=== PATIENT | male | born 1955 | race Caucasian/White ===

== ENCOUNTER → 2016-08-26 | Outpatient (CLI) | payer BC ==
[~2016-08-26] MED LIST: BUSPAR 30MG30 MG/TAB PO; CEFTIN500 MG PO; ENTOCORT EC3 MG PO; FLOMAX 0.40.4 MG/CAP PO; FLORINEF ACETA0.1 MG PO; LIPITOR 10MG10 MG PO; MACROBID 1100 MG/CAP PO; PRILOSEC 20MG20 MG PO; VESICARE10 MG PO; VIIBRYD40 MG PO; WELLBUTRIN SR100 M1 PO; ZANAFLEX2 MG PO; ZOLOFT 100MG100 MG
== END ==
LOC: BHSO 14:46
DX: F06.32 Mood disorder due to known physiological condition with major depressive-like episode (principal)

== ENCOUNTER → 2016-10-29 | Outpatient (CLI) | payer BC | LOC: BHSO 15:07 | DX: F06.32 Mood disorder due to known physiological condition with major depressive-like episode (principal) ==

== ENCOUNTER → 2016-12-30 | Outpatient (CLI) | payer BC | LOC: BHSO 14:38 | DX: F06.32 Mood disorder due to known physiological condition with major depressive-like episode (principal) ==

== ENCOUNTER 2017-03-14 01:58 | Emergency (ER) | payer BC ==
[~2017-03-14] VITALS: Ht 167.6 cm; Wt 71.4 kg
[~2017-03-14 01:58] MED LIST changes: -MACROBID 1100 MG/CAP PO; -VIIBRYD40 MG PO
[2017-03-14 02:01] VITALS: TEMP 97.7
[2017-03-14] MEDS ORDERED: VIIBRYD40 MG PO (02:08)
[2017-03-14 02:53] LABS: PH 5 (5-8); SQUAMOUS EPITHELIAL None Seen /hpf; URINE APPEARANCE Clear; URINE BACTERIA Rare /hpf; URINE BILIRUBIN Negative (NEGATIVE); URINE BLOOD Negative (NEGATIVE); URINE COLOR Yellow; URINE GLUCOSE Negative (NEGATIVE); URINE KETONE Negative (NEGATIVE); URINE UROBILINOGEN Negative (NEGATIVE)
[2017-03-14] MEDS ORDERED: MACROBID 1100 MG/CAP PO (03:05)
[2017-03-14 03:37] VITALS: BP 113/81; PULSE 91
== END 2017-03-14 03:37 | disposition home or self-care (01) ==
LOC: COL.ER 01:58
PROVIDERS: Emergency Medicine
DX: R33.9 Retention of urine, unspecified (principal); G90.3 Multi-system degeneration of the autonomic nervous system
CPT/HCPCS: A4315

== ENCOUNTER → 2017-03-30 | Outpatient (CLI) | payer BC ==
[~2017-03-30] MED LIST changes: +ASPIRIN 81M81 MG/TA2 PO; +B-12; +B-12 INJ; +CEFACLOR500 M2 PO; +CRANBERRY500 M3 PO; +MACROBID 1100 MG/CAP PO; +MIRALAX PA17 GM/Dose PO; +MULTIPLE VITAMI1 CAP PO; +PROAMATINE 5MG T5 MG PO; +PROSCAR 5MG5 MG PO; +REQUIP 0.5MG0.5 MG PO; +THE MEDICINE S200 M2 PO; +TYLENOL 500MG500 MG PO; +VIIBRYD40 MG PO; +WELLBUTRIN XL300 M1 PO; +ZANTAC 150MG T150 MG PO
== END ==
LOC: BHSO 15:13
DX: F06.32 Mood disorder due to known physiological condition with major depressive-like episode (principal)

== ENCOUNTER 2017-04-08 09:12 | Day surgery (SDC) | payer BC ==
[~2017-04-08] VITALS: Ht 167.6 cm; Wt 69.1 kg
[~2017-04-08 09:12] MED LIST changes: -ASPIRIN 81M81 MG/TA2 PO; -B-12; -B-12 INJ; -CEFACLOR500 M2 PO; -CRANBERRY500 M3 PO; -MIRALAX PA17 GM/Dose PO; -MULTIPLE VITAMI1 CAP PO; -PROAMATINE 5MG T5 MG PO; -PROSCAR 5MG5 MG PO; -REQUIP 0.5MG0.5 MG PO; -THE MEDICINE S200 M2 PO; -TYLENOL 500MG500 MG PO; -WELLBUTRIN XL300 M1 PO; -ZANTAC 150MG T150 MG PO
[2017-04-08 10:30] VITALS: BP 141/93; PULSE 79; TEMP 97.5
[2017-04-08] MEDS ORDERED: WELLBUTRIN XL300 M1 PO (10:45)
[2017-04-08] MEDS ORDERED: ZANTAC 150MG T150 MG PO (10:48)
[2017-04-08] MEDS ORDERED: REQUIP 0.5MG0.5 MG PO (11:01)
[2017-04-08] MEDS ORDERED: PROSCAR 5MG5 MG PO (11:01)
[2017-04-08] MEDS ORDERED: THE MEDICINE S200 M2 PO (11:02)
[2017-04-08] MEDS ORDERED: ASPIRIN 81M81 MG/TA2 PO (11:02)
[2017-04-08] MEDS ORDERED: B-12 (11:09)
[2017-04-08] MEDS ORDERED: MULTIPLE VITAMI1 CAP PO (11:10)
[2017-04-08] MEDS ORDERED: B-12 INJ (11:10)
[2017-04-08] MEDS ORDERED: CRANBERRY500 M3 PO (11:11)
[2017-04-08] MEDS ORDERED: TYLENOL 500MG500 MG PO (11:12)
[2017-04-08] MEDS ORDERED: MIRALAX PA17 GM/Dose PO (11:13)
[2017-04-08] MEDS ORDERED: CEFACLOR500 M2 PO (11:14)
[2017-04-08] MEDS ORDERED: PROAMATINE 5MG T5 MG PO (11:14)
[2017-04-08 17:46] VITALS: BP 140/75; PULSE 86
[2017-04-08 22:06] VITALS: BP 124/73; PULSE 94; TEMP 98.4
[2017-04-09] VITALS (8 sets, daily range): BP systolic 102–171; BP diastolic 57–98; PULSE 70–86; TEMP 97.1–98.3
[2017-04-09 07:54] LABS: MEAN CELL VOLUME 88 fl (80.0-100.0); MEAN CORPUSCULAR HGB CONC 33 g/dl (33.0-37.0); MEAN PLATELET VOLUME 10.7 fl (7.4-10.4); PLATELET COUNT 264 K/mm3 (130-400); RED BLOOD COUNT 3.94 M/mm3 (4.20-5.60); WHITE BLOOD COUNT 11.7 K/mm3 (4.8-10.8)
[2017-04-09 07:55] LABS: HEMATOCRIT 34.8 % (42.0-52.0); HEMOGLOBIN 11.4 g/dl (13.5-18.0); MEAN CORPUSCULAR HEMOGLOBIN 29 pg (27.0-31.0)
[2017-04-10 03:16] VITALS: BP 168/99; PULSE 72; TEMP 98.5
[2017-04-10 09:00] VITALS: BP 116/76; PULSE 60; TEMP 97.5
[2017-04-10 12:00] VITALS: BP 129/87; PULSE 76; TEMP 97.7
== END 2017-04-10 17:50 | disposition home or self-care (01) ==
LOC: SDCO 09:12 → SURG 12:45 → SDCO 14:00
PROVIDERS: Urology
DX: N40.1 Benign prostatic hyperplasia with lower urinary tract symptoms (principal); R33.9 Retention of urine, unspecified; F41.9 Anxiety disorder, unspecified; G11.9 Hereditary ataxia, unspecified; R39.12 Poor urinary stream; E78.5 Hyperlipidemia, unspecified; J38.02 Paralysis of vocal cords and larynx, bilateral; G90.3 Multi-system degeneration of the autonomic nervous system; Z87.891 Personal history of nicotine dependence
CPT/HCPCS: OP; J0690; J1100; J2405; J2704; J3010; J7120

== ENCOUNTER 2017-08-05 19:31 | Inpatient (IN) | payer BC ==
[~2017-08-05] VITALS: Ht 167.6 cm; Wt 73.3 kg
[~2017-08-05 19:31] MED LIST changes: +ASPIRIN 81M81 MG/TA2 PO; +B-12; +B-12 INJ; +CEFACLOR500 M2 PO; +CRANBERRY500 M3 PO; +MIRALAX PA17 GM/Dose PO; +MULTIPLE VITAMI1 CAP PO; +PROAMATINE 5MG T5 MG PO; +PROSCAR 5MG5 MG PO; +REQUIP 0.5MG0.5 MG PO; +THE MEDICINE S200 M2 PO; +TYLENOL 500MG500 MG PO; +WELLBUTRIN XL300 M1 PO; +ZANTAC 150MG T150 MG PO
[2017-08-05 20:21] LABS: BASO % 0.4 % (0.0-2.0); EOS # 0.1 (0.0-0.7); EOS % 1.9 % (0-4.0); GRAN # 4.4 (1.4-6.5); GRAN % 64.2 % (42.2-75.2); LYMPH # 1.6 (1.2-3.4); LYMPH % 24.2 % (20.0-51.0); MEAN CELL VOLUME 87 fl (80.0-100.0); MEAN CORPUSCULAR HEMOGLOBIN 29 pg (27.0-31.0); MEAN CORPUSCULAR HGB CONC 33 g/dl (33.0-37.0); MEAN PLATELET VOLUME 10.3 fl (7.4-10.4); MONO # 0.6 (0.1-0.6); PLATELET COUNT 217 K/mm3 (130-400); RED BLOOD COUNT 4.14 M/mm3 (4.20-5.60); REDCELL DISTRIBUTION WIDTH-CV 12.7 % (11.5-14.5)
[2017-08-05 20:31] LABS: ALBUMIN 4.2 gm/dL (3.5-5.0); BILIRUBIN,TOTAL 0.3 mg/dL (0.0-1.0); CALCIUM 9.4 mg/dL (8.4-10.2); CREATININE, serum 2.15 mg/dL (0.66-1.25); POTASSIUM 3.8 mmol/L (3.4-5.0)
[2017-08-05 20:46] LABS: TROPONIN-I 0.038 ng/mL (0.000-0.034)
[2017-08-06 01:12] VITALS: BP 129/95; PULSE 99; TEMP 98.7
[2017-08-06 06:16] LABS: BASO % 0.4 % (0.0-2.0); EOS # 0.2 (0.0-0.7); GRAN # 4.7 (1.4-6.5); GRAN % 58.3 % (42.2-75.2); HEMATOCRIT 33.1 % (42.0-52.0); HEMOGLOBIN 11.1 g/dl (13.5-18.0); LYMPH # 2.4 (1.2-3.4); MEAN CELL VOLUME 87 fl (80.0-100.0); MEAN CORPUSCULAR HEMOGLOBIN 29 pg (27.0-31.0); MEAN CORPUSCULAR HGB CONC 34 g/dl (33.0-37.0); MEAN PLATELET VOLUME 10.3 fl (7.4-10.4); MONO # 0.7 (0.1-0.6); MONO % 8.9 % (1.7-9.3); PLATELET COUNT 192 K/mm3 (130-400); RED BLOOD COUNT 3.81 M/mm3 (4.20-5.60); REDCELL DISTRIBUTION WIDTH-CV 12.4 % (11.5-14.5)
[2017-08-06 06:28] LABS: CALCIUM 8.8 mg/dL (8.4-10.2); CHOLESTEROL RISK RATIO 3.8; CREATININE, serum 1.62 mg/dL (0.66-1.25); POTASSIUM 3.4 mmol/L (3.4-5.0)
[2017-08-06 07:53] VITALS: BP 111/55; BP 119/82; PULSE 62; PULSE 83; PULSE 85
[2017-08-06 07:57] VITALS: BP 76/47; PULSE 80
[2017-08-06 12:23] VITALS: BP 138/77; PULSE 83; TEMP 98.5
[2017-08-06 16:22] VITALS: BP 158/92; PULSE 85; TEMP 97.9
[2017-08-06 19:51] VITALS: BP 155/98; PULSE 91; TEMP 98.5
[2017-08-07 00:16] VITALS: BP 154/91; PULSE 85; TEMP 98.5
[2017-08-07 04:38] VITALS: BP 164/92; PULSE 94; TEMP 98.4
[2017-08-07 06:58] LABS: CREATININE, serum 1.36 mg/dL (0.66-1.25); POTASSIUM 3.3 mmol/L (3.4-5.0)
[2017-08-07 07:59] VITALS: BP 133/88; PULSE 79; TEMP 97.8
[2017-08-07] MEDS ORDERED: PROAMATINE 5MG T5 MG PO (08:44)
== END 2017-08-07 11:15 | disposition home or self-care (01) | DRG 281 ==
LOC: COL.ER 19:31 → MEDICAL 23:04
PROVIDERS: Emergency Medicine; Family Medicine; Nurse Practitioner
PROC: 0HQ1XZZ Repair Face Skin, External Approach (ICD-10-PCS; principal; 2017-08-05)
DX: I95.1 Orthostatic hypotension (principal); I21.A1 Myocardial infarction type 2; N17.9 Acute kidney failure, unspecified; N31.9 Neuromuscular dysfunction of bladder, unspecified; I10 Essential (primary) hypertension; S01.112A Laceration without foreign body of left eyelid and periocular area, initial encounter; E78.5 Hyperlipidemia, unspecified; E86.0 Dehydration; F32.9 Major depressive disorder, single episode, unspecified; D64.9 Anemia, unspecified; G13.8 Systemic atrophy primarily affecting central nervous system in other diseases classified elsewhere; W18.39XA Other fall on same level, initial encounter; Z87.891 Personal history of nicotine dependence; Z91.14 Patient's other noncompliance with medication regimen
CPT/HCPCS: 99222-AI; 99239; J7030

== ENCOUNTER 2017-08-16 13:33 | Emergency (ER) | payer BC ==
[2017-08-16 13:39] VITALS: BP 103/66; PULSE 82; TEMP 97.6
== END 2017-08-16 14:24 | disposition home or self-care (01) ==
LOC: COL.ER 13:33
DX: S01.112D Laceration without foreign body of left eyelid and periocular area, subsequent encounter (principal); Z79.82 Long term (current) use of aspirin

== ENCOUNTER 2017-08-26 09:47 | Observation (INO) | payer BC ==
[~2017-08-26] VITALS: Ht 170.2 cm; Wt 71.5 kg
[2017-08-26 09:57] VITALS: BP 139/95; PULSE 85
[2017-08-26 10:14] LABS: BASO % 0.4 % (0.0-2.0); EOS # 0.1 (0.0-0.7); EOS % 0.7 % (0-4.0); GRAN # 8.5 (1.4-6.5); GRAN % 77.1 % (42.2-75.2); HEMATOCRIT 37.1 % (42.0-52.0); HEMOGLOBIN 12.2 g/dl (13.5-18.0); LYMPH # 1.7 (1.2-3.4); LYMPH % 15.7 % (20.0-51.0); MEAN CELL VOLUME 89 fl (80.0-100.0); MEAN CORPUSCULAR HEMOGLOBIN 29 pg (27.0-31.0); MEAN CORPUSCULAR HGB CONC 33 g/dl (33.0-37.0); MEAN PLATELET VOLUME 10.6 fl (7.4-10.4); MONO # 0.6 (0.1-0.6); MONO % 5.7 % (1.7-9.3); PLATELET COUNT 230 K/mm3 (130-400); RED BLOOD COUNT 4.19 M/mm3 (4.20-5.60); REDCELL DISTRIBUTION WIDTH-CV 12.3 % (11.5-14.5)
[2017-08-26 10:21] LABS: ALBUMIN 4.4 gm/dL (3.5-5.0); BILIRUBIN,TOTAL 0.5 mg/dL (0.0-1.0); CALCIUM 9.1 mg/dL (8.4-10.2); CREATININE, serum 1.92 mg/dL (0.66-1.25); TOTAL PROTEIN 7.2 gm/dL (6.4-8.2)
[2017-08-26 10:32] LABS: COLLECTION METHOD CLEAN CATCH
[2017-08-26 10:34] LABS: TROPONIN-I 0.036 ng/mL (0.000-0.034)
[2017-08-26 11:03] LABS: PROTHROMBIN TIME 11.6 SECONDS (9.7-12.8)
[2017-08-26 11:06] LABS: PARTIAL THROMBOPLASTIN TIME 26.6 SECONDS (26.0-37.0)
[2017-08-26 11:19] LABS: PH 7 (5-8); URINE APPEARANCE Hazy; URINE BILIRUBIN Negative (NEGATIVE); URINE COLOR Yellow; URINE GLUCOSE 2+ (NEGATIVE); URINE KETONE Negative (NEGATIVE); URINE NITRATE Negative (NEGATIVE); URINE PROTEIN(semi-quant) 2+ (NEGATIVE); URINE UROBILINOGEN Negative (NEGATIVE)
[2017-08-26 11:20] LABS: URINE BLOOD Negative (NEGATIVE); URINE LEUKOCYTE ESTERASE Trace (NEGATIVE)
[2017-08-26 11:51] LABS: MUCOUS Present /lpf; URINE BACTERIA Occasional /hpf
[2017-08-26 12:54] VITALS: BP 123/50; PULSE 88; TEMP 98
[2017-08-26] MEDS ORDERED: NORTHERA300 PO (14:33)
[2017-08-26] MEDS ORDERED: LIORESAL 1010 MG/TAB PO (14:37)
[2017-08-26] MEDS ORDERED: DITROPAN 5MG TAB5 MG PO (14:38)
[2017-08-26 15:04] VITALS: BP 139/91; PULSE 73; PULSE 94; TEMP 98.4
[2017-08-26 20:05] VITALS: BP 137/82; PULSE 94; TEMP 97.8
[2017-08-27] VITALS (7 sets, daily range): BP systolic 140–190; BP diastolic 90–99; PULSE 78–92; TEMP 97.5–97.9
[2017-08-27 07:28] LABS: BASO % 0.4 % (0.0-2.0); EOS # 0.2 (0.0-0.7); EOS % 2.4 % (0-4.0); GRAN # 4.6 (1.4-6.5); GRAN % 55.9 % (42.2-75.2); LYMPH # 2.6 (1.2-3.4); MEAN CELL VOLUME 88 fl (80.0-100.0); MEAN CORPUSCULAR HGB CONC 33 g/dl (33.0-37.0); MEAN PLATELET VOLUME 10.8 fl (7.4-10.4); MONO # 0.8 (0.1-0.6); MONO % 9.1 % (1.7-9.3); PLATELET COUNT 188 K/mm3 (130-400); RED BLOOD COUNT 3.98 M/mm3 (4.20-5.60); REDCELL DISTRIBUTION WIDTH-CV 12.3 % (11.5-14.5)
[2017-08-27 07:38] LABS: HEMATOCRIT 35.2 % (42.0-52.0); HEMOGLOBIN 11.5 g/dl (13.5-18.0); MEAN CORPUSCULAR HEMOGLOBIN 29 pg (27.0-31.0)
[2017-08-27 07:45] LABS: CREATININE, serum 1.36 mg/dL (0.66-1.25); POTASSIUM 3.8 mmol/L (3.4-5.0)
[2017-08-28] VITALS (12 sets, daily range): BP systolic 131–196; BP diastolic 83–110; PULSE 73–101; TEMP 97.7–98.4
[2017-08-28 07:41] LABS: MEAN CELL VOLUME 87 fl (80.0-100.0); MEAN CORPUSCULAR HGB CONC 33 g/dl (33.0-37.0); MEAN PLATELET VOLUME 10.9 fl (7.4-10.4); PLATELET COUNT 199 K/mm3 (130-400); REDCELL DISTRIBUTION WIDTH-CV 12.3 % (11.5-14.5)
[2017-08-28 07:48] LABS: MEAN CORPUSCULAR HEMOGLOBIN 29 pg (27.0-31.0)
[2017-08-28 08:01] LABS: ALBUMIN 3.8 gm/dL (3.5-5.0); BILIRUBIN,TOTAL 0.3 mg/dL (0.0-1.0); CREATININE, serum 1.28 mg/dL (0.66-1.25); POTASSIUM 3.5 mmol/L (3.4-5.0); TOTAL PROTEIN 6.6 gm/dL (6.4-8.2)
== END 2017-08-28 21:05 | disposition home or self-care (01) ==
LOC: COL.ER 09:47 → MEDICAL 11:43
PROVIDERS: Emergency Medicine; Internal Medicine; Physician Assistant
DX: R55 Syncope and collapse (principal); I95.1 Orthostatic hypotension; S01.91XA Laceration without foreign body of unspecified part of head, initial encounter; E87.2 Acidosis; N31.9 Neuromuscular dysfunction of bladder, unspecified; E78.5 Hyperlipidemia, unspecified; F32.9 Major depressive disorder, single episode, unspecified; D64.9 Anemia, unspecified; Z79.82 Long term (current) use of aspirin; Z87.891 Personal history of nicotine dependence; Z80.3 Family history of malignant neoplasm of breast; Z82.49 Family history of ischemic heart disease and other diseases of the circulatory system
CPT/HCPCS: 99238; G0378; G8978-GP; G8979-GP; J1644; J2543; J7030

== ENCOUNTER → 2017-09-22 | Outpatient (CLI) | payer BC ==
[~2017-09-22] MED LIST changes: +DITROPAN 5MG TAB5 MG PO; +LIORESAL 1010 MG/TAB PO; +NORTHERA300 PO
== END ==
LOC: BHSO 15:08
DX: F06.32 Mood disorder due to known physiological condition with major depressive-like episode (principal)
CPT/HCPCS: G0463